=== PATIENT | male | born 1955 | race Caucasian/White ===

== ENCOUNTER → 2017-12-16 | Outpatient (CLI) | payer BC | LOC: M.RAD 12:23 | DX: M19.042 Primary osteoarthritis, left hand (principal); M19.041 Primary osteoarthritis, right hand; I10 Essential (primary) hypertension; G89.29 Other chronic pain; M54.41 Lumbago with sciatica, right side; M54.42 Lumbago with sciatica, left side ==

== ENCOUNTER → 2020-10-17 | Outpatient (CLI) | payer MEDICARE ==
[~2020-10-17] MED LIST: HYDROCODONE-AP1 EA11 PO
== END ==
LOC: M.PC 08:39
PROVIDERS: ATTEND Anesthesiology Pain Medicine
DX: M54.9 Dorsalgia, unspecified (principal); G89.29 Other chronic pain; M43.26 Fusion of spine, lumbar region; M47.817 Spondylosis without myelopathy or radiculopathy, lumbosacral region; M19.90 Unspecified osteoarthritis, unspecified site; I10 Essential (primary) hypertension; Z98.890 Other specified postprocedural states; Z96.641 Presence of right artificial hip joint; Z96.642 Presence of left artificial hip joint; Z79.899 Other long term (current) drug therapy

== ENCOUNTER → 2020-12-12 | Outpatient (CLI) | payer MEDICARE ==
[~2020-12-12] MED LIST changes: +ALPHAGAN P15 ML; +ASPIRIN325 PO; +CENTRUM SILVER1 EAC4 PO; +DESYREL150 MG PO; +FISH OIL 1,001000 M3 PO; +FLEXERIL PO; +GLUCOSAMINE1000 MG PO; +HYDROCHLOROTHIA25 M1 PO; +HYTRIN 2MG CAPSU2 M1 PO; +KETOROLAC 0.5% E5 ML; +PRAVASTATIN SOD40 MG PO; +REQUIP 0.25 M0.25 M1 PO; +VITAMIN C1000 MG PO; +VITAMIN D325 MC1 PO; +VITAMIN E1000 UNIT PO
== END ==
LOC: M.PC 09:30
PROVIDERS: ATTEND Anesthesiology Pain Medicine
DX: G89.29 Other chronic pain (principal); M54.5 Low back pain; I10 Essential (primary) hypertension; M19.90 Unspecified osteoarthritis, unspecified site; Z98.1 Arthrodesis status; Z96.641 Presence of right artificial hip joint; Z68.37 Body mass index [BMI] 37.0-37.9, adult; Z79.891 Long term (current) use of opiate analgesic; Z79.899 Other long term (current) drug therapy; Z87.828 Personal history of other (healed) physical injury and trauma; Z86.69 Personal history of other diseases of the nervous system and sense organs

== ENCOUNTER → 2021-02-11 | Outpatient (CLI) | payer MEDICARE | LOC: M.PC 07:57 | PROVIDERS: ATTEND Anesthesiology Pain Medicine | DX: M47.816 Spondylosis without myelopathy or radiculopathy, lumbar region (principal); M51.26 Other intervertebral disc displacement, lumbar region; M48.07 Spinal stenosis, lumbosacral region; I10 Essential (primary) hypertension; M19.90 Unspecified osteoarthritis, unspecified site; G89.29 Other chronic pain; Z98.1 Arthrodesis status; Z79.891 Long term (current) use of opiate analgesic ==

== ENCOUNTER → 2021-04-17 | Outpatient (CLI) | payer MEDICARE | LOC: M.PC 07:56 | PROVIDERS: ATTEND Anesthesiology Pain Medicine | DX: M43.26 Fusion of spine, lumbar region (principal); G89.29 Other chronic pain; I10 Essential (primary) hypertension; M19.90 Unspecified osteoarthritis, unspecified site; Z96.643 Presence of artificial hip joint, bilateral; Z79.82 Long term (current) use of aspirin; Z79.899 Other long term (current) drug therapy ==

== ENCOUNTER → 2021-08-12 | Outpatient (CLI) | payer OTHER | LOC: M.PC 08-07 08:00 | PROVIDERS: ATTEND Anesthesiology Pain Medicine | DX: G89.29 Other chronic pain (principal); M48.061 Spinal stenosis, lumbar region without neurogenic claudication; I10 Essential (primary) hypertension; M13.88 Other specified arthritis, other site; M47.816 Spondylosis without myelopathy or radiculopathy, lumbar region; Z96.643 Presence of artificial hip joint, bilateral; Z79.899 Other long term (current) drug therapy; Z79.82 Long term (current) use of aspirin ==